=== PATIENT | male | born 1985 | race Caucasian/White ===

== ENCOUNTER → 2024-09-17 10:33 | Outpatient (CLI) | payer OTHER, SELFPAY ==
--- NOTE | 2024-09-17 10:37 | DI.CT.S_ITS ---
PROCEDURE: CT LE RT WO CON INDICATIONS: RIGHT ANKLE ARTHRITIS,SURGICAL PLANNING TECHNIQUE: Noncontrast 3-mm axial sections acquired from the distal tibial shaft to the talar dome, with coronal and sagittal reformats.. COMPARISON: [facility] [place], [place], XR ANKLE 3 VIEWS WEIGHT BEARING LEFT, 07/22/2024, 14:35. FINDINGS: Image quality: Diagnostic. Bones: Moderate lateral tilt of the talus. Many nonacute appearing bone fragments are seen around the malleoli. Background moderate degenerative tibiotalar changes and mild subtalar/midfoot degenerative changes. No acute displaced fracture or dislocation. Partially seen lateral patellar tilt also present. Hallux valgus alignment. Soft tissues: Mild edema in the lower leg. No drainable fluid collection IMPRESSION: Surgical planning CT for right ankle arthritis, as described above. Dictated by: Wilmer Torres M.D. on 09/17/2024 at 17:35 Approved by: Wilmer Torres M.D. on 09/17/2024 at 17:38
== END ==
LOC: CT 10:37
PROVIDERS: PCP Physician Assistant; Referring Provider Orthopaedic Surgery Foot and Ankle Surgery; Visit Provider Orthopaedic Surgery Foot and Ankle Surgery
DX: M19.071 Primary osteoarthritis, right ankle and foot (principal)
CPT/HCPCS: 73700

== ENCOUNTER 2025-03-08 06:04 | Day surgery (SDC) | payer OTHER, SELFPAY ==
[2025-03-02 15:12] VITALS: BMI 33.2
[2025-03-08] VITALS (12 sets, daily range): BP systolic 107–153; BP diastolic 57–83; PULSE 69–93; RESP 12–20; TEMP 36.1–36.8; O2SAT 94–97; BMI 31.8
--- NOTE | 2025-03-08 | DI.RAD.S_ITS ---
PROCEDURE: XR ANKLE RT MIN 3V INDICATIONS: TOTAL RT ANKLE TECHNIQUE: a total of 8 intraoperative radiographs including AP and lateral views of the ankle were acquired COMPARISON: None. FINDINGS: See impression IMPRESSION: Intraoperative radiographs show steps to completion of internal fixation of the medial malleolus and suture anchor placement in the lateral malleolus. There is a pre- existing total ankle arthroplasty. No acute fracture or dislocation on last intraoperative radiograph. Dictated by: Cam Carballo M.D. on 03/08/2025 at 14:55 Approved by: Cam Carballo M.D. on 03/08/2025 at 14:56
[2025-03-08] MEDS: ACETAMINOPHEN 325 MG TABLET 975 MG PO (07:08)
[2025-03-08] MEDS: LACTATED RINGERS 1,000 ML 42 ML IV ×2 (07:08→09:20)
--- NOTE | 2025-03-08 07:26 | PM.PREOP ---
Pre-operative Note Interval Note History & Physical reviewed/Exam performed by Physician: Yes Changes to H&P: No
--- NOTE | 2025-03-08 07:56 | P.OP_ITS ---
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 He is bone on bone arthritis pain with every step that has not been resolved by conservative treatments injections previous debridements and bracing. He was counseled on treatment options decision was made for joint sparing procedure with a total ankle arthroplasty. He understands risks of fracture, loosening, persistent pain, need for additional or revision procedures in the future. The risks and benefits of the procedure have been discussed with the patient and given the opportunity to ask questions. The risks of surgery include but are not limited to infection, malunion, nonunion, persistence of pain, damage to nerves and blood vessels, posttraumatic arthritis, DVT, PE, coardiopulmonary complications and . The patient expressed a thorough understanding of the risks and benefits of surgery and has elected to proceed. Consent was signed. Surgeon: Nancy Easley Anesthesia Type: General, Peripheral nerve block and Local Operative Notes Findings: Right ankle Varus [id number] arthritis right ankle, lateral ligamentous incompetence. Closure Type: primary Specimen(s): none sent Prosthetic devices, grafts, tissues, transplants, or devices: Encampment 28 apex 3D total ankle Right Tibia arc stem 3 long Talus flat cut 1 narrow Poly 8 mm Encampment 28 3.0 titanium anchors x2 for lateral ligament reconstruction Applied: implant(s) (See above) Estimated Blood Loss (mL): 50 Tourniquet time (min): 120 Procedure in detail: Patient was seen in the preoperative area the site of surgery was marked informed consent confirmed. This was the right ankle. Patient was brought to the operating room by the anesthesia team. A preoperative block was placed for postoperative pain control. This was placed by the anesthesia team. The patient was positioned supine on operative table. All bony prominences were well padded. An SCD was placed on the contralateral lower extremity. An ipsilateral thigh bump was applied. And a stack of blankets was placed below the operative extremity with care to make sure the heel was hanging free. The right lower extremity was then prepped and draped in the standard sterile fashion a formal time-out procedure was performed confirming the patient's side and site of surgery administration of the appropriate preoperative antibiotic. All were in agreement. The Esmarch was then used for exsanguination the tourniquet raised on the thigh to 250 mmHg. Attention turned to the left ankle. Standard landmarks for a 10 cm incision for the anterior approach the ankle was performed just about 1 cm lateral to the tibial crest to the level of the talonavicular joint. This was taken down through the skin and subcutaneous tissue. The extensor retinaculum was then divided. Care was taken to visualize and protect the superficial peroneal nerve branch and retract this laterally. The interval between the tibialis anterior and the EHL was demonstrated, and the EHL and neurovascular bundle was retracted laterally and the tibialis anterior medially. The joint was exposed and the Bovie cautery was used to subperiosteally dissect out the joint. Appropriate releases were done to reduce the ankle symmetrically in the joint and pinned it in place with pins from the medial malleolus and lateral malleolus into the talus. Next the fast track technique was utilized to place the pins and turbinates slope, alignment height and rotation. Then the drill holes for the arc tibia of the toes and size were completed with the green guide and then the black guide and then the reciprocal saw was brought in for the gutter cuts. Then the coupled cut to the talus was performed after the talus was pinned neutral and checked on AP and lateral fluoroscopy. The sagittal saw was used for the flat cut talus. Then the tibia was finished with a sized amezquita drill cut guides and then the guide was flipped over and the final drill holes completed. At this point the tibia and talus bone resections were removed. And the spacer block was applied to confirm appropriate resection. Next the guide for the tibial tray was applied and pinned in place and the peg holes were reamed on drill and confirmed on lateral fluoroscopy for appropriate depth. Once this was completed the talus tray was floated and checked for alignment and then pinned in place with the shoulder pins these were finally tightened on hand with a T-handle. Meticulous care was taken to make sure the medial and lateral gutters were clear. Once this was positioned appropriate the drill holes for the pegs on the talus implant were drilled. Then all the implants were removed and the final tibia tray was applied. 1 cc of demineralized graft was applied to the crevices on the ingrowth tray. The tibial tray was then inserted in place and confirmed appropriate alignment on fluoroscopy. Attention was then turned to the talus which was placed in the standard fashion. Then the trial 6 mm poly was applied. There was lateral ankle ligament instability. And decision was made for Brostrom lateral ankle ligament reconstruction. There was lateral ankle ligament instability. The poly was then removed. The separate incision was made at the along the posterior border of the fibula over the ATFL this was taken down through the skin subcutaneous tissue. Periosteum was taken off the end of the fibula and the fibular bone was prepared with a rongeur. The suture anchors were placed at the footprint of the ATFL and then taken through the lateral ankle ligaments and a horizontal mattress fashion the foot was brought into dorsiflexion eversion in his were tied securing the lateral ankle ligamentous reconstruction at this point the trial poly was placed back in and this was now symmetric with no excessive lateral tilt. This achieved excellent alignment and stability. Range of motion was greater than 10? dorsiflexion with the knee extended 40? plantar flexion and was stable to varus and valgus stress. At this time the final poly was placed, this was a 8 mm poly. Next a prophylactic medial malleolus screw was placed to prevent stress fracture. A separate incision was made medially for this wire for the cannulated screw was positioned and confirmed at appropriate positioning on AP and lateral x-rays. This was then drilled and measured and a 42 mm 3.5 cannulated headed screw from the paragon 28 set was applied. Final fluoroscopic x-rays an AP mortise and lateral were obtained that demonstrated appropriate hardware alignment and good clear gutters. At this point tourniquet was released hemostasis was achieved. The wounds were closed in a layered fashion including the extensor retinaculum. And the skin was closed with nylon suture. 30 cc of 0.25% Marcaine with epinephrine were injected for local anesthesia. A sterile dressing was applied with Xeroform gauze Webril and a bulky Quijano splint in neutral position. The patient was awoken from anesthesia and taken to the recovery area in good condition there were no immediate complications from this procedure. Counts were correct. Complications: none Post-operative Condition: stable Disposition: PACU Plan for aftercare: Touchdown weight-bearing right lower extremity. Elevate heart level as much as possible next 2 weeks. Aspirin 325 mg daily for DVT prophylaxis x6 weeks. Follow up in Orthopedic Clinic as scheduled.
--- NOTE | 2025-03-08 08:24 | SUR.PREOP ---
Block start time 0747, with a time out at 0740. Monitoring initiated and maintained throughout procedure. Oxygen and medications given by anesthesia provider. Patient remained stable throughout procedure, no adverse reactions noted. Block end time 0757.
--- NOTE | 2025-03-08 08:49 | SUR.OPER ---
Supine on padded OR bed, head on pillow, arms secured on padded arm boards at <90 degrees abduction, legs uncrossed, safety belt at hip, flannel blankets bumping right hip and under right leg, tape over blanket over lower legs and over blanket bump.
[2025-03-08] MEDS: BUPivacaine 0.25% W/ EPI (PF) 30 ML VIAL 60 ML INJ (08:54)
--- NOTE | 2025-03-08 13:35 | SUR.PHASEII ---
Popliteal nerve block completed with JESUS Fallon and self. Time out completed at 1320 and all members in agreeance. Procedure from [id number]. Patient comfortable and block completed without difficulty. VSS and aox4. 320.
--- NOTE | 2025-03-08 14:27 | SUR.OPER ---
GEL PAD UNDER LEFT LEG AND ANKLE
[2025-03-08] MEDS: PHENAZOPYRIDINE 100 MG TABLET 200 MG PO (15:19)
--- NOTE | 2025-03-08 17:12 | SUR.PHASEII ---
Late entry: 1430 patient voided small amount of yellow fluid but patient c/o burning with urination. Dr. Easley was notified and Pyridium was ordered.
== END 2025-03-08 15:25 | disposition home or self-care (01) ==
PROVIDERS: PCP Physician Assistant; Referring Provider Orthopaedic Surgery Foot and Ankle Surgery; Visit Provider Orthopaedic Surgery Foot and Ankle Surgery
PROC: (CPT 27702; principal; 2025-03-08 07:45)
PROC: (CPT 27685; 2025-03-08 07:45)
DX: M19.071 Primary osteoarthritis, right ankle and foot (principal); M25.371 Other instability, right ankle; M21.171 Varus deformity, not elsewhere classified, right ankle; G89.18 Other acute postprocedural pain
CPT/HCPCS: 27702; 27698; 64450; 73610; 76000; C1776; C1713; J0689; J2250